=== PATIENT | female | born 1985 | race Caucasian/White ===

== ENCOUNTER 2024-03-01 01:37 | Emergency (ER) | payer BC ==
--- NOTE | 2024-03-01 03:05 | ERPHSYRPT ---
- History of Present Illness Time Seen by Provider: 03/01/24 02:50 Historian: patient Exam Limitations: no limitations Patient Subjective Stated Complaint: pt states she has been having abd pain since approx 1700. started as rt upper quad radiating to the back and is now a lso on lt side Triage Nursing Assessment: pt alert and oriented. answers questions approp. pt ambulates into room with steady gait noted. respirations nonlabored. skin warm and dry. abd soft and nontender to light palpation. bowel sounds present x4. Physician History: 39yo f presents via private vehicle for RUQ abdominal pain that started roughly 7h [employer]. Pt reports the pain radiates into her right subscapular region as well. Pt denies any vomiting or diarrhea, does endorse nausea. Pt denies any cp, sob, reports her last BM was today, states it was normal for her. Pt states her pain is currently 6/10, reports it was 10/10 earlier. Pt reports she takes a GLP1 injectable medication for weight loss. Pt reports her LMP was 2wks ago. Timing/Duration: today, hour(s) (7) Activities at Onset: none Quality: cramping, sharpness Abdominal Pain Onset Location: RUQ Pain Radiation: back Severity of Pain-Max: moderate Severity of Pain-Current: mild Modifying Factors: Improves With: nothing Associated Symptoms: nausea, No chest pain, No diaphoresis, No diarrhea, No fever/chills, No rash, No shortness of breath, No syncope, No vomiting Allergies/Adverse Reactions: Penicillins Allergy (Intermediate, Verified 03/01/24 02:32) Hives Home Medications: Fluoxetine HCl [Prozac] 20 mg PO DAILY 03/01/24 [History] Tirzepatide [Mounjaro] 2.5 mg SQ WEEKLY 03/01/24 [History] Hx Tetanus, Diphtheria Vaccination/Date Given: Yes Hx Influenza Vaccination/Date Given: Yes Hx Pneumococcal Vaccination/Date Given: No Immunizations Up to Date: Yes Travel Risk - International Travel Have you traveled outside of the country in past 3 weeks: No - Emerging Infectious Disease Are you exhibiting symptoms associated with any current EIDs: No - Review of Systems Constitutional: No Symptoms Respiratory: No Symptoms Cardiac: No Symptoms Abdominal/Gastrointestinal: Abdominal Pain, Nausea, No Vomiting, No Diarrhea, No Constipation, No Hematemesis, No Hematochezia Genitourinary Symptoms: No Dysuria, No Frequency, No Hematuria, No Urgency - Past Medical History Pertinent Past Medical History: Yes Psycho-Social History: Anxiety - Past Surgical History Past Surgical History: Yes Other Surgical History: rt wrist, lasik, c section x2 - Female History Hx Last Menstrual Period: 2 wks Hx Now: No - Social History Smoking Status: Former smoker Exposure to second hand smoke: No Drug Use: none - Social Determinants of Health Will the patient participate in the screening: Declined to provide - Nursing Vital Signs Nursing Vital Signs: Initial Vital Signs Respiratory Rate 16 03/01/24 02:35 Blood Pressure 143/94 03/01/24 02:35 O2 Sat by Pulse Oximetry 100 03/01/24 02:35 Pain Scale Pain Intensity 3 - Physical Exam General Appearance: no apparent distress, alert Respiratory Exam: normal breath sounds, lungs clear, airway intact, No chest tenderness, No respiratory distress Cardiovascular Exam: regular rate/rhythm, normal heart sounds, normal peripheral pulses Gastrointestinal/Abdomen Exam: soft, normal bowel sounds, tenderness (ruq), No distention, No guarding Neurologic Exam: alert, oriented x 3, cooperative Skin Exam: normal color, warm SpO2 Interpretation: normal SpO2: 100 O2 Delivery: Room Air Ordered Tests: Active Orders 24 hr Category Date Time Status ABDOMEN AND PELVIS W CONTRAST [CT] Stat Exams 03/01/24 04:16 Taken CBC W DIFF Stat Lab 03/01/24 03:08 Completed CMP Stat Lab 03/01/24 03:08 Completed HCG QUALITATIVE, SERUM Stat Lab 03/01/24 03:08 Completed LIPASE Stat Lab 03/01/24 03:08 Completed UA W/RFX UR CULTURE Stat Lab 03/01/24 03:08 Completed Urine Triage Profile Stat Lab 03/01/24 03:08 Completed Medication Summary Discontinued Medications Generic Name Dose Route Start Last Admin Trade Name Freq PRN Reason Stop Dose Admin Sodium Chloride 1,000 mls @ 999 mls/hr 03/01/24 02:57 03/01/24 04:47 Sodium Chloride 0.9% 1000 Ml IV 03/01/24 03:57 Infused .Q1H1M STA Infusion Sodium Chloride Confirm 03/01/24 03:13 Sodium Chloride 0.9% 1000 Ml Administered 03/01/24 03:14 Dose 1,000 mls @ ud .ROUTE .STK-MED ONE Morphine Sulfate 2 mg 03/01/24 02:57 03/01/24 03:17 Morphine Sulfate 2 Mg/Ml Inj IV 03/01/24 02:58 2 mg STAT ONE Administration Morphine Sulfate Confirm 03/01/24 03:13 Morphine Sulfate 2 Mg/Ml Inj Administered 03/01/24 03:14 Dose 2 mg .ROUTE .STK-MED ONE Ondansetron HCl 4 mg 03/01/24 02:57 03/01/24 03:18 Ondansetron Hcl 4 Mg/2 Ml Vial IV 03/01/24 02:58 4 mg STAT ONE Administration Ondansetron HCl Confirm 03/01/24 03:13 Ondansetron Hcl 4 Mg/2 Ml Vial Administered 03/01/24 03:14 Dose 4 mg .ROUTE .STK-MED ONE Lab/Rad Data: Laboratory Result Diagrams 03/01/24 03:08 03/01/24 03:08 Laboratory Results 03/01/24 03/01/24 03/01/24 Range/Units 03:08 03:08 03:08 WBC 9.3 (3.98-10.04) x10^3/uL RBC 3.87 L (3.93-5.22) x10^6/uL Hgb 11.4 (11.2-15.7) g/dL Hct 34.8 (34.1-44.9) % MCV 89.9 (79.4-94.8) fL MCH 29.5 (25.6-32.2) pg MCHC 32.8 (32.2-35.5) g/dL RDW 13.1 (11.7-14.4) % Plt Count 347 (182-369) x10^3/uL MPV 9.8 (9.4-12.3) fL Gran % 74.6 H (34.0-71.1) % Immature Gran % (Auto) 0.5 H (0.001-0.429) % Nucleat RBC Rel Count 0.0 (0.00-0.2) % Eos # (Auto) 0.07 (0.04-0.36) x10^3/uL Immature Gran # (Auto) 0.05 H (0.001-0.031) x10^3u/L Absolute Lymphs (auto) 1.82 (1.18-3.74) x10^3/uL Absolute Monos (auto) 0.41 (0.24-0.86) x10^3/uL Absolute Nucleated RBC 0.00 (0.00-0.012) x10^3u/L Lymphocytes % 19.5 (19.3-51.7) % Monocytes % 4.4 L (4.7-12.5) % Eosinophils % 0.8 (0.7-5.8) % Basophils % 0.2 (0.1-1.2) % Absolute Granulocytes 6.96 H (1.56-6.13) x10^3/uL Basophils # 0.02 (0.01-0.08) x10^3/uL Sodium 136 (135-145) mmol/L Potassium 3.7 (3.5-5.1) mmol/L Chloride 102 (98-107) mmol/L Carbon Dioxide 25 (22-30) mmol/L Anion Gap 12.9 (5-15) MEQ/L BUN 12 (7-17) mg/dL Creatinine 0.71 (0.52-1.04) mg/dL Estimated GFR 110.2 ML/MIN Glucose 110 H (74-106) mg/dL Calcium 10.3 H (8.4-10.2) mg/dL Total Bilirubin 0.30 (0.2-1.3) mg/dL AST 24 (14-36) U/L ALT 16 (0-35) U/L Alkaline Phosphatase 73 (38-126) U/L Serum Total Protein 7.7 (6.3-8.2) g/dL Albumin 4.5 (3.5-5.0) g/dL Lipase 86 (23-300) U/L Serum HCG, Qual NEGATIVE (NEGATIVE) Urine Color (Yellow) Urine Appearance (Clear) Urine pH (4.6-8.0) Ur Specific Randolph (1.005-1.030) Urine Protein (Negative) Urine Glucose (UA) (Negative) mg/dL Urine Ketones (Negative) Urine Blood (Negative) Urine Nitrite (Negative) Urine Bilirubin (Negative) Urine Urobilinogen (0.2) mg/dL Ur Leukocyte Esterase (Negative) U Hyaline Cast (Auto) (0-2) /LPF Urine Microscopic RBC (0-5) /HPF Urine Microscopic WBC (0-5) /HPF Ur Epithelial Cells (None Seen) /HPF Urine Bacteria (None Seen) /HPF Urine Culture Reflexed (NO) Urine Opiates Level (NEGATIVE) Ur Methadone (NEGATIVE) Urine Barbiturates (NEGATIVE) Ur Phencyclidine (PCP) (NEGATIVE) Urine Amphetamine (NEGATIVE) U Benzodiazepine Level (NEGATIVE) Urine Cocaine (NEGATIVE) Urine Marijuana (THC) (NEGATIVE) 03/01/24 03/01/24 Range/Units 03:08 03:08 WBC (3.98-10.04) x10^3/uL RBC (3.93-5.22) x10^6/uL Hgb (11.2-15.7) g/dL Hct (34.1-44.9) % MCV (79.4-94.8) fL MCH (25.6-32.2) pg MCHC (32.2-35.5) g/dL RDW (11.7-14.4) % Plt Count (182-369) x10^3/uL MPV (9.4-12.3) fL Gran % (34.0-71.1) % Immature Gran % (Auto) (0.001-0.429) % Nucleat RBC Rel Count (0.00-0.2) % Eos # (Auto) (0.04-0.36) x10^3/uL Immature Gran # (Auto) (0.001-0.031) x10^3u/L Absolute Lymphs (auto) (1.18-3.74) x10^3/uL Absolute Monos (auto) (0.24-0.86) x10^3/uL Absolute Nucleated RBC (0.00-0.012) x10^3u/L Lymphocytes % (19.3-51.7) % Monocytes % (4.7-12.5) % Eosinophils % (0.7-5.8) % Basophils % (0.1-1.2) % Absolute Granulocytes (1.56-6.13) x10^3/uL Basophils # (0.01-0.08) x10^3/uL Sodium (135-145) mmol/L Potassium (3.5-5.1) mmol/L Chloride (98-107) mmol/L Carbon Dioxide (22-30) mmol/L Anion Gap (5-15) MEQ/L BUN (7-17) mg/dL Creatinine (0.52-1.04) mg/dL Estimated GFR ML/MIN Glucose (74-106) mg/dL Calcium (8.4-10.2) mg/dL Total Bilirubin (0.2-1.3) mg/dL AST (14-36) U/L ALT (0-35) U/L Alkaline Phosphatase (38-126) U/L Serum Total Protein (6.3-8.2) g/dL Albumin (3.5-5.0) g/dL Lipase (23-300) U/L Serum HCG, Qual (NEGATIVE) Urine Color Yellow (Yellow) Urine Appearance Cloudy A (Clear) Urine pH 8.5 A (4.6-8.0) Ur Specific Randolph 1.020 (1.005-1.030) Urine Protein Negative (Negative) Urine Glucose (UA) Negative (Negative) mg/dL Urine Ketones Negative (Negative) Urine Blood Negative (Negative) Urine Nitrite Negative (Negative) Urine Bilirubin Negative (Negative) Urine Urobilinogen 1.0 A (0.2) mg/dL Ur Leukocyte Esterase Negative (Negative) U Hyaline Cast (Auto) NONE SEEN (0-2) /LPF Urine Microscopic RBC 0-2 (0-5) /HPF Urine Microscopic WBC 0-2 (0-5) /HPF Ur Epithelial Cells Rare (None Seen) /HPF Urine Bacteria None Seen (None Seen) /HPF Urine Culture Reflexed NO (NO) Urine Opiates Level NEGATIVE (NEGATIVE) Ur Methadone NEGATIVE (NEGATIVE) Urine Barbiturates NEGATIVE (NEGATIVE) Ur Phencyclidine (PCP) NEGATIVE (NEGATIVE) Urine Amphetamine NEGATIVE (NEGATIVE) U Benzodiazepine Level NEGATIVE (NEGATIVE) Urine Cocaine NEGATIVE (NEGATIVE) Urine Marijuana (THC) NEGATIVE (NEGATIVE) - Progress Progress: improved Progress Note: 03/01/24 05:08 CT abd/pelvis w/ shows: 1. hypodense lesion in right adnexa, likely dominant follicle, [id number] 2. small fat containing umbilical hernia 3. left non-obstructive intra-renal calculus pain completely resolved at time of re-exam 03/01/24 05:11 labs unremarkable pain likely 2/2 GLP1 medication vs possible recently passed kidney stone vs abdominal muscle strain plan for discharge home recommend tylenol/ibuprofen for discomfort follow up w/ PCP (Mario) this week to discuss symptoms return to ED if: develop fevers, develop significant nausea/vomiting, develop chest pain, develop difficulty breathing Counseled pt/family regarding: lab results, diagnosis, need for follow-up, rad results Medical Desision Making - Diagnostic Testing Diagnostic test were ordered, analyzed, and reviewed by me: Yes Radiological Interpretation: Reviewed by me, Teleradiologist Report - Risk of complications Minimal Risk: Minimal risk of morbidity - Departure Departure Disposition: Home Clinical Impression: RUQ abdominal pain, Renal calculi Condition: Stable Critical Care Time: No Referrals: VIANEY TUTTLE NP [Primary Care Provider] - Follow up/PCP as directed Additional Instructions: plan for discharge home recommend tylenol/ibuprofen for discomfort follow up w/ PCP (Mario) this week to discuss symptoms return to ED if: develop fevers, develop significant nausea/vomiting, develop chest pain, develop difficulty breathing
[2024-03-01 03:11] LABS: Absolute Neutrophil Ct (ANC) 6.96 x10^3/uL (1.56-6.13); BASOPHIL % 0.2 % (0.1-1.2); Basophil (Absolute #) 0.02 x10^3/uL (0.01-0.08); Eosinophil % 0.8 % (0.7-5.8); Eosinophil (Absolute #) 0.07 x10^3/uL (0.04-0.36); Hematocrit 34.8 % (34.1-44.9); Hemoglobin 11.4 g/dL (11.2-15.7); IMMATURE GRAN # 0.05 x10^3u/L (0.001-0.031); IMMATURE GRAN % 0.5 % (0.001-0.429); Lymphocyte (Absolute #) 1.82 x10^3/uL (1.18-3.74); Lymphocytes % 19.5 % (19.3-51.7); Mean Cell Volume 89.9 fL (79.4-94.8); Mean Corpuscular Hemoglobin 29.5 pg (25.6-32.2); Mean Corpuscular Hgb Concent. 32.8 g/dL (32.2-35.5); Mean Platelet Volume 9.8 fL (9.4-12.3); Monocyte (Absolute #) 0.41 x10^3/uL (0.24-0.86); Monocytes % 4.4 % (4.7-12.5); Neutrophil % 74.6 % (34.0-71.1); Platelet Count 347 x10^3/uL (182-369); Red Blood Count 3.87 x10^6/uL (3.93-5.22); Red Cell Distribution Width 13.1 % (11.7-14.4); White Blood Count 9.3 x10^3/uL (3.98-10.04)
[2024-03-01] MEDS ORDERED: MORPHINE SULFATE 2 MG INJ ONE (03:13)
[2024-03-01] MEDS ORDERED: Sodium Chloride 0.9% 1000 ML 1,000 ML ONE (03:13)
[2024-03-01] MEDS ORDERED: Zofran 4 MG/2 ML VIAL ONE (03:13)
[2024-03-01] MEDS: MORPHINE SULFATE 2 MG INJ IV ONE (03:17)
[2024-03-01] MEDS: Sodium Chloride 0.9% 1000 ML 1,000 ML IV STA (03:17)
[2024-03-01 03:18] LABS: Appearance Cloudy (Clear); Bacteria None Seen /HPF (None Seen); Bilirubin Negative (Negative); Blood Negative (Negative); Epithelial Cells Rare /HPF (None Seen); Glucose, Urine Negative (Negative); Hyaline Casts NONE SEEN /LPF (0-2); Ketones Negative (Negative); Leukocyte Esterase Negative (Negative); Nitrite Negative (Negative); Ph 8.5 (4.6-8.0); Protein,Urine Dip Negative (Negative); RBC 0-2 /HPF (0-5); WBC 0-2 /HPF (0-5)
[2024-03-01] MEDS: Zofran 4 MG/2 ML VIAL IV ONE (03:18)
[2024-03-01 03:19] LABS: ADD URINE CULTURE? NO (NO)
[2024-03-01 03:23] LABS: ALBUMIN 4.5 g/dL (3.5-5.0); ANION GAP 12.9 MEQ/L (5-15); BILIRUBIN,TOTAL 0.3 mg/dL (0.2-1.3); Calcium 10.3 mg/dL (8.4-10.2); Creatinine 1 0.71 mg/dL (0.52-1.04); EST GLOMERULAR FILTRATION RATE 110.2 ML/MIN; HCG SERUM TEST NEGATIVE (NEGATIVE); Potassium 3.7 mmol/L (3.5-5.1); Total Protein 7.7 g/dL (6.3-8.2)
[2024-03-01 03:29] LABS: Amphetamine,Urine NEGATIVE (NEGATIVE); Barbiturate,Urine NEGATIVE (NEGATIVE); Benzodiazepine,Urine NEGATIVE (NEGATIVE); Cocaine,Urine NEGATIVE (NEGATIVE); Methadone,Urine NEGATIVE (NEGATIVE); Opiate,Urine NEGATIVE (NEGATIVE); PCP,Urine NEGATIVE (NEGATIVE); THC,Urine NEGATIVE (NEGATIVE)
[2024-03-01 05:10] VITALS: BP 123/83; PULSE 74; RESP 17
[2024-03-01 05:14] VITALS: O2SAT 100
--- NOTE | 2024-03-01 10:00 | XRAY ---
CLINICAL HISTORY: RUQ pain COMPARISON: None TECHNIQUE: Multiple contiguous axial images were obtained from the level of diaphragm to the pubis symphysis. This study was acquired after the IV administration of iodinated contrast material, given the patients indications for the examination. If IV contrast material had not been administered, the likelihood of detecting abnormalities relevant to the patient's condition would have been substantially decreased. Coronal and sagittal reformatted images were generated and reviewed to improve anatomic localization and optimize lesion detection. CT scan was performed according to ALARA (as low as reasonably achievable). FINDINGS: The visualized lung bases are clear. ABDOMEN/PELVIS: The liver is normal in size and attenuation. No focal liver lesions are seen. There is no intra or extrahepatic biliary ductal dilatation. Hepatic vasculature is patent. The gallbladder is distended. No radio dense calculus is seen. The spleen, pancreas, and adrenal glands are unremarkable. The kidneys are normal in size and attenuation. Left lower pole calculus measuring 3 mm. There is no hydronephrosis or perinephric fat stranding. No renal masses are identified. The ureters are normal in caliber and no ureteral calculi are seen. The bladder is normal in contour. No evidence of focal or diffuse bowel wall thickening or evidence of bowel obstruction is seen. The appendix is not visualized. Small fat containing umbilical hernia noted. Hypodense lesion measuring 18 x 15 mm noted in right adnexa - likely dominant follicle. Few colonic diverticula with no signs of acute inflammation. No adenopathy or fluid collections are seen. The aorta is normal in caliber. No aggressive appearing osseous lesions are identified. IMPRESSION: 1. No acute intra-abdominal abnormality. 2. Hypodense lesion in right adnexa - likely dominant follicle. 3. Small fat containing umbilical hernia. 4. Left non-obstructive intrarenal calculus. 5. Few colonic diverticula with no signs of acute inflammation. Electronically Signed by: Adan Alamo MD. (03/01/2024 04:58:01 EDT)
== END 2024-03-01 05:29 | disposition home or self-care (01) ==
LOC: ED 01:37
DX: N20.0 Calculus of kidney (principal); R10.11 Right upper quadrant pain; R11.0 Nausea; Z79.85 Long-term (current) use of injectable non-insulin antidiabetic drugs; Z79.899 Other long term (current) drug therapy
CPT/HCPCS: 36000; 36415; 74177; 80053; 80307; 81001; 83690; 84703; 85025; 96360; 96374; 96375; 99284; J2270; J2405